=== PATIENT | female | born 1990 | race African-American/Black ===

== ENCOUNTER 2016-12-21 21:53 | Emergency (ER) | payer OTHER ==
[~2016-12-21] VITALS: Ht 177.8 cm; Wt 136.1 kg
[2016-12-21 23:22] VITALS: BP 136/75
== END 2016-12-21 23:23 | disposition home or self-care (01) ==
LOC: ER 21:53
DX: T78.1XXA Other adverse food reactions, not elsewhere classified, initial encounter (principal); F10.99 Alcohol use, unspecified with unspecified alcohol-induced disorder; L29.8 Other pruritus; H57.8 Other specified disorders of eye and adnexa; X58.XXXA Exposure to other specified factors, initial encounter